=== PATIENT | male | born 1950 | race Caucasian/White ===

== ENCOUNTER 2016-08-07 02:28 | Inpatient (IN) | payer OTHER ==
--- NOTE | ~2016-08-07 | HP ---
History And Physical [id number] [place]. [address] NAME: GERTRUDIS LOAIZA : 54 STATUS : ADM IN [facility]#: [id number] AGE: 66 ADM/REG DATE : 08/07/16 MR#: [id number] REPORT SERV DATE: 08/07/16 DICTATED BY: CORI VARELA DATE: 08/07/16 REPORT STATUS : Draft TRANSCRIBED BY: MODLaquita DATE: 08/07/16 DATE OF ADMISSION: 08/07/2016 POINT OF ENTRY: [facility] Emergency Department. PRIMARY ASSET MANAGER: Marcelino Zapata M.D. CHIEF COMPLAINT: Shortness of breath, chest tightness. HISTORY OF PRESENT ILLNESS: Mr. Loaiza is a 66-year-old gentleman with a history of coronary artery disease with prior ST-elevation myocardial infarction and PCI to the LAD and RCA as well as COPD, on 2 L nasal cannula, and chronic systolic congestive heart failure with last known ejection fraction of 30%, who presents to the emergency department today with a two to three-day history of worsening shortness of breath, cough, sputum production, wheezing, subjective fevers, as well as a sensation of fluid overload. The patient states that he is prescribed Lasix 40 mg b.i.d., but only takes it 40 mg daily as the evening dose causes him to pee throughout the night. 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 The patient states that he has had a few bouts of upper respiratory infections and/or COPD exacerbations for the last few months and has been prescribed various rounds of antibiotics for this. He primarily complains of a two to three-day history of cough with sputum production with associated shortness of breath, dyspnea on exertion, and some orthopnea. He states that he probably has abdominal bloating, but does also endorse some lower extremity edema. Also, endorses some wheezing. Also, endorses some low-grade fevers about 100.0 degrees Fahrenheit. The patient denies any mica left-sided chest pain, but describes a sensation of chest tightness which he attributes to volume overload. Initial evaluation in the emergency department notable for troponin value was mildly elevated at 0.18, BNP is greater than 5000. Chest x-ray shows volume overload. EKG is a paced rhythm and is somewhat concerning for some very mild ST elevations in the lateral leads. I have no prior for comparison at this time, his ChartMaxx is down. Repeat EKG is pending at time of dictation. The patient was given 80 mg of IV Lasix and Solu-Medrol breathing treatments and admitted to the Hospitalist Service. REVIEW OF SYSTEMS: Comprehensive review of systems otherwise negative unless listed in history of present illness. The patient states he does not weigh himself on a daily basis. He is able to tell me his fluid intake, but does state that he restricts it. He states that he avoids adding salt to foods, but readily admits that he may not avoid foods that already are intrinsically high in sodium. PREVIOUS MEDICAL HISTORY: 1. Chronic systolic congestive heart failure with ejection fraction of 30% in 2013. 2. Coronary artery disease with prior PCI to the LAD and RCA. History And Physical [address] [address] NAME: GERTRUDIS LOAIZA : [birth year] STATUS : ADM IN [facility]#: [id number] AGE: 66 ADM/REG DATE : 08/07/16 MR#: [id number] REPORT SERV DATE: 08/07/16 DICTATED BY: CORI VARELA DATE: 08/07/16 REPORT STATUS : Draft TRANSCRIBED BY: CHACHA DATE: 08/07/16 3. COPD, on 2 L by nasal cannula. 4. Status post pacemaker ICD insertion. 5. Chronic kidney disease, stage 2. 6. Peptic ulcer disease. 7. Obstructive sleep apnea, on CPAP therapy. 8. Active tobacco abuse. SURGICAL HISTORY: 1. AICD pacemaker. 2. PCI. 3. Cholecystectomy. 4. Bilateral inguinal hernia repair. ALLERGIES: SHELLFISH, SHRIMP, BUT HAS TOLERATED PRIOR ARTERIOGRAMS IN THE PAST. HOME MEDICATIONS: Pending at time of dictation. SOCIAL HISTORY: Smokes about a half pack per day. Denies any alcohol. Denies any illicits. FAMILY MEDICAL HISTORY: Mother with cancer, type unknown. Father with coronary artery disease in the early 60s of myocardial infarction. Siblings, only child. LABS AND IMAGIN. White count is 14.1, hemoglobin 9.7, hematocrit is 35.1, platelets 204. INR 1.2. 2. Sodium is 140, potassium 4.3, chloride 107, carbon dioxide 29, BUN 14, creatinine 1.07, glucose is 100, calcium is 9.1, magnesium is 2.3. 3. Troponin is 0.18, BNP is greater than 5000. 4. EKG #1 per my review, AV paced rhythm with occasional PVCs with some approximately [address] elevations in the lateral leads. 5. EKG #2 per my review again shows an AV paced rhythm at this time with less than [address] elevations in leads V4 through V6. Again, no prior for comparison at this time, his ChartMaxx is down. 6. Chest x-ray per my review shows cardiomegaly with AICD in place as well as intravascular volume overload and pulmonary venous congestion, but no mica pulmonary edema. PHYSICAL EXAMINATION: VITAL SIGNS: Temperature is 100.3 degrees Fahrenheit, pulse is 99, respirations 20, saturating 100% on 3 L by nasal cannula, blood pressure is 146/74. On recheck, blood pressure is now 142/71, saturating 97% on 3 L by nasal cannula, pulse of 92. GENERAL: The patient is awake, alert, in no acute distress. Resting comfortably in bed. He is a well-developed, well-nourished, male. HEENT: Atraumatic and normocephalic. Moist mucous membranes. Pupils are equal, round, reactive to light and accommodation. Extraocular eye movements are intact. No scleral icterus. NECK: Positive jugular venous distention. No carotid bruits. CARDIAC: Regular rate and rhythm with a 2/6 systolic murmur heard best over left lower History And Physical [address] [address] NAME: GERTRUDIS LOAIZA : [birth year] STATUS : ADM IN [facility]#: [id number] AGE: 66 ADM/REG DATE : 08/07/16 MR#: [id number] REPORT SERV DATE: 08/07/16 DICTATED BY: CORI VARELA DATE: 08/07/16 REPORT STATUS : Draft TRANSCRIBED BY: MODL DATE: 08/07/16 sternal border. LUNGS: On oxygen, but in no respiratory distress. Decreased breath sounds at the bases and prolonged respiratory phase with some mild inspiratory crackles and rales, but I do not appreciate any wheezes at this time. ABDOMEN: Obese, soft, nontender, nondistended. Good bowel sounds. No rebound, guarding, rigidity. EXTREMITIES: Warm and perfused with trace pedal edema. SKIN: Warm and dry. PSYCH: Affect appropriate. NEURO: Alert and oriented x3. Cranial nerves 2 through 12 grossly intact. Speech is normal. Gait not assessed. ASSESSMENT AND PLAN: Mr. Loaiza is a 66-year-old gentleman with a history of chronic systolic congestive heart failure with chronic obstructive pulmonary disease, coronary artery disease, and active tobacco abuse, who presents with a few day history of shortness of breath, cough, sputum production, and wheezing as well as fevers. PROBLEM LIST: 1. Acute on chronic systolic congestive heart failure. 2. Acute chronic obstructive pulmonary disease exacerbation. 3. Troponin elevation. 4. Leukocytosis. 5. Active tobacco abuse. 6. Chronic hypoxic respiratory failure. PLAN: 1. Acute on chronic systolic congestive heart failure likely due to the patient not taking the prescribed amount of Lasix as well as possible fluid and sodium noncompliance. We will place him on Lasix 40 mg IV q.8 hours for first 24 hours, place him on fluid and sodium restriction, and daily weights. We will place him on low-dose Coreg as well as lisinopril for heart failure optimization. We will repeat an echocardiogram, his most recent I can see is 2012 at 30%. 2. Acute COPD exacerbation. Provide some IV steroids, nebulizations, as well as antibiotics. 3. Leukocytosis, unclear etiology at this time. His chest x-ray is clear. Checking urinalysis as well as blood culture, sputum culture, procalcitonin, and lactic acid level. He will be on Levaquin for COPD exacerbation. 4. Troponin elevation. The patient reports chest tightness, but not mica pain. His EKG while abnormal does not appear to be actively ischemic. Unfortunately, I do not have any priors for comparison at this time. We will trend out cardiac enzymes. Continue the patient on aspirin. Cardiology consultation for assistance. Again, likely due to demand ischemia from his volume overload and COPD exacerbation. 5. Chronic hypoxic respiratory failure. The patient is currently close to his baseline oxygen requirements. We will wean as tolerated. 6. Active tobacco abuse. Need for tobacco cessation. 7. DVT prophylaxis. Lovenox subcu. History And Physical [address] [address] NAME: GERTRUDIS LOAIZA : 54 STATUS : ADM IN PAT#: [id number] AGE: 66 ADM/REG DATE : 08/07/16 MR#: [id number] REPORT SERV DATE: 08/07/16 DICTATED BY: CORI VARELA DATE: 08/07/16 REPORT STATUS : Draft TRANSCRIBED BY: CHACHA DATE: 08/07/16 CODE STATUS: The patient wishes to be full code. JCB/CHACHA Cori Varela MD / [id number] CC: Dhiraj Polo MD Brian Mitchell, M.D.
--- NOTE | ~2016-08-07 | DS ---
Discharge Summary [facility] [address] [place]. [address] NAME: GERTRUDIS MENSAH : 54 STATUS : DIS IN PAT#: [id number] AGE: 66 ADM/REG DATE : 08/07/16 MR#: [id number] REPORT SERV DATE: 08/09/16 DICTATED BY: SURESH GRAY DATE: 08/08/16 REPORT STATUS : Draft TRANSCRIBED BY: MODL DATE: 08/08/16 ADMISSION DATE: 08/07/2016 DISCHARGE DATE: 08/08/2016 DISCHARGE DIAGNOSES: Include: 1. Chronic systolic heart failure in the setting of some volume overload and noncompliance with medication therapy. 2. Shortness of breath with chronic obstructive pulmonary disease exacerbation. 3. Tobacco use. 4. Positive troponin and demand ischemia. 5. Leukocytosis. 6. Chronic hypoxic respiratory failure. 7. History of coronary artery disease, coronary artery bypass grafting. 8. Ischemic cardiomyopathy with a previous ejection fraction of 25 to 30%. 9. Small dime-sized abscess on the left posterior thigh. DISCHARGE MEDICATIONS: Are as follows: Aspirin 81 mg daily; carvedilol 6.25 mg p.o. twice a day, prescription written; Zestril 2.5 Mg twice a day; Senokot two tabs twice a day; Carafate 1 g p.o. four times a day; Aldactone 25 mg daily; Demadex 20 mg daily; Decadron 4 mg daily; Phenergan 25 mg every four hours p.r.n.; Spiriva one capsule one daily; ProAir inhaler one puff inhaled q.4 hours p.r.n. for shortness of breath; and doxycycline 100 mg twice a day for seven days. HISTORY OF PRESENT ILLNESS: This is a 66-year-old white male, presented with worsening shortness of breath and chest tightness. Please see the initial H and P of Dr. Diomedes Roberts. The patient admitted to the Hospitalist Service for further evaluation and treatment. He was initially given more aggressive IV diuresis with Lasix. Lab work was ordered and followed. He was given nebulizer, steroids, and antibiotics. CONSULTANTS DURING THIS ADMISSION: Include Cardiology, Dr. Jeovanny Dougherty. CONTINUATION OF HOSPITAL COURSE: Following day on 08/07/2016, I saw the patient, where he was feeling considerably better, was only having very mild shortness of breath, chest pain was better but was still somewhat there with inspiration. He was seen by double head machine operator, Dr. Jeovanny Dougherty, and I believe in the conservation more light was shed on his overall health history and current social situation. His echocardiogram that initially been ordered was canceled by Cardiology, and his diuretics were changed from Lasix to Demadex. His Coreg had been increased and this was continued and Cardiology felt like he would be safe for discharge home with home health and have an outpatient followup with double head machine operator, Dr. Zapata, in four weeks and a lengthy discussion with the patient about need to be compliant with his current medication regimen. Hopefully, the patient will need to take his medications as prescribed. The patient was complaining of a small reddened abscess on the left posterior thigh area, and it was approximately a dime-sized. I expressed a small amount of pus from this, and I have placed the patient on doxycycline for treatment. He states that it has gotten better over the past several weeks and he will follow up with his primary care, Dr. Santiago, in 7-10 days as well. He made a rather rapid improvement in his Discharge Summary [address] [address] NAME: GERTRUDIS MENSAH : 54 STATUS : DIS IN PAT#: [id number] AGE: 66 ADM/REG DATE : 08/07/16 MR#: [id number] REPORT SERV DATE: 08/09/16 DICTATED BY: SURESH GRAY DATE: 08/08/16 REPORT STATUS : Draft TRANSCRIBED BY: CHACHA DATE: 08/08/16 overall clinical picture simply by being on the medication regimen and being adherent while here in the hospital. I had a lengthy discussion with the patient about need to quit smoking as well, and hopefully, he will take that to heart. The patient will be discharged home on 08/08/2016 with the above medication regimen, prescriptions, followup planning. Questions were answered at bedside, and he is in agreement with this. Please note greater than 30 minutes was spent on this discharge for medication teaching, followup planning, and further disposition. DICTATED BY: Suresh Gray NP CSC/CHACHA Suresh Gray NP / [id number] CC: MD Raoul Villagomez MD
--- NOTE | ~2016-08-07 | CN ---
Consultation Report [facility] [address] [place]. [address] NAME: GERTRUDIS LOAIZA : 54 STATUS : ADM IN PAT#: [id number] AGE: 66 ADM/REG DATE : 08/07/16 MR#: [id number] REPORT SERV DATE: 08/07/16 DICTATED BY: JEOVANNY BARNES DATE: 08/07/16 REPORT STATUS : Draft TRANSCRIBED BY: MODL DATE: 08/07/16 CARDIOLOGY CONSULT DATE OF CONSULTATION: 08/07/2016 REASON FOR CONSULTATION: Ischemic cardiomyopathy and demand ischemia. PRIMARY CUTTER OPERATOR: Marcelino Zapata M.D. HISTORY OF ILLNESS: Mr. Loaiza is a 66-year-old male with a complex past medical history , who presented to the [facility] Emergency Department with increasing shortness of breath and chest pain. He has a known chronic stable angina, which has been increasing recently in the setting of volume overload due to medication, diuretic therapy, nonadherence. He has been given IV Lasix in the ER as well as pulmonary treatments for COPD and he now feels much better. He is resting comfortably, lying flat in bed. He denies having any palpitations. He has had no ICD shocks or syncope. He notes that his atypical chest pain symptoms have significantly improved. He had no lower extremity edema. Mr. Loaiza's care is complicated by known CAD, status post CABG and PCI, ischemic cardiomyopathy with an LVEF of 25% to 30%, ICD in situ, chronic systolic heart failure (class 3/4-stage D), and severe steroid-dependent COPD. Of note, Mr. Loaiza was recently on hospice care with an unclear status at this time. REVIEW OF SYSTEMS: Pertinent positives and negatives are as outlined above, all others negative. PAST MEDICAL HISTORY: 1. CAD, status post CABG and PCI. 2. Ischemic cardiomyopathy, EF 25% to 30%. 3. Chronic systolic heart failure, class 3/4-stage D. 4. ICD in situ. 5. Nonsustained ventricular tachycardia. 6. History of tobacco use. 7. Severe steroid-dependent COPD. 8. Hypertension. 9. Hyperlipidemia, statin intolerant. MEDICATIONS: His current home medications are: 1. Carvedilol 6.25 mg twice daily. 2. Lisinopril 2.5 mg twice daily. 3. Lasix 40 mg twice daily, currently not taking. 4. Decadron 4 mg daily. 5. Bactrim DS daily. 6. Carafate 1 g daily. Consultation Report [address] [place]. [address] NAME: GERTRUDIS LOAIZA : 54 STATUS : ADM IN PAT#: [id number] AGE: 66 ADM/REG DATE : 08/07/16 MR#: [id number] REPORT SERV DATE: 08/07/16 DICTATED BY: JEOVANNY BARNES DATE: 08/07/16 REPORT STATUS : Draft TRANSCRIBED BY: CHACHA DATE: 08/07/16 7. Senokot tablets as directed. 8. Phenergan p.r.n. 9. Symax-SL 0.125 mg every 4 hours p.r.n. ALLERGIES: INCLUDE SHELLFISH. SOCIAL HISTORY: Mr. Loaiza has intermittent tobacco use. He does not consume alcohol or use illegal drugs. He was recently on hospice for severe steroid-dependent COPD and class 3/4-stage D chronic heart failure. FAMILY HISTORY: Significant for CAD and COPD. PHYSICAL EXAMINATION: VITAL SIGNS: Temperature is 98.4, pulse is 88, respirations 16, and blood pressure 118/66. GENERAL: Well-developed chronically ill-appearing male who is resting comfortably, lying flat in bed in no distress. HEENT: Sclerae anicteric, mucous membranes moist and without lesions. NECK: There is JVD 2-4 cm above the clavicle sitting at 60 degrees. No hepatojugular reflux, carotid upstrokes 2+ and symmetric, there are no carotid or subclavian bruit. LUNGS: Severely decreased breath sounds throughout with no wheezes or crackles. CARDIOVASCULAR: Regular with soft S1 and normal S2. No audible S3. There is a soft 1/6 holosystolic murmur heard in the axilla without radiation. No parasternal lift. PMI is not palpable. ABDOMEN: Obese, soft, and nontender. Bowel sounds are positive and normoactive. PULSES: Radial and dorsalis pedis pulses are 1+ and symmetric. EXTREMITIES: Warm and without edema. SKIN: No clubbing or cyanosis, no rashes or lesions. ACCESSORY DATA: ECG on arrival shows sinus rhythm and an atrial sensed ventricular paced rhythm. Chest x-ray shows cardiomegaly and no acute disease. Labs with a creatinine of 1.0 and troponin 0.18 and subsequent 0.13. BNP 5000. CBC unremarkable. IMPRESSION: 1. Shortness of breath. 2. Chest pain/chronic angina with demand ischemia. 3. Volume overload secondary to medication nonadherence. 4. Coronary artery disease, status post CABG and PCI. 5. Ischemic cardiomyopathy, EF 25% to 30%. 6. Nonsustained ventricular tachycardia. 7. ICD in situ. Consultation Report [address] [address] NAME: GERTRUDIS LOAIZA : 54 STATUS : ADM IN PAT#: [id number] AGE: 66 ADM/REG DATE : 08/07/16 MR#: [id number] REPORT SERV DATE: 08/07/16 DICTATED BY: JEOVANNY BARNES. DATE: 08/07/16 REPORT STATUS : Draft TRANSCRIBED BY: CHACHA DATE: 08/07/16 8. Chronic systolic heart failure, class 3/4-stage D. 9. Severe steroid dependent chronic obstructive pulmonary disease. 10.Tobacco use. PLAN: Mr. Loaiza is currently on good medical therapy. I agree with recently increased carvedilol. He has had some NSVT on telemetry monitoring, but no syncope or ICD shocks. Recommend changing Lasix to oral Demodex for better bioavailability, longer half-life, and more potent diuretic effect. This may increase compliance taking this once daily rather Lasix twice daily. It could be taken twice daily on a p.r.n. basis. Echocardiogram will be canceled. We will not exchange administrator. Need to confirm hospice status versus palliative care need. We will recommend following up with his primary robotics specialist in one month and his primary care provider one week. His care was discussed with the hospitalist, Dr. Alberts, who agreed with the plan. Please call with questions. AEA/MODL Jeovanny Barnes M.D. / [id number] CC: MD Michele Villagomez M.D.
[2016-08-07 02:27] LABS: BASOPHILS 0.4 %; BASOPHILS ABSOLUTE 0.05 10/3/uL (0.0-0.16); EOSINOPHILS 1.5 %; EOSINOPHILS ABSOLUTE 0.21 10/3/uL (0.0-0.53); ER CBC TAT 0 Hrs 05 Mins; HEMATOCRIT 35.1 % (40.0-51.0); HEMOGLOBIN 11.7 g/dL (13.6-17.8); IMMATURE GRANULOCYTES 0.2 %; IMMATURE GRANULOCYTES ABSOLUTE 0.03 10/3/uL (0.0-0.11); LYMPHOCYTES 18.4 %; LYMPHOCYTES ABSOLUTE 2.59 10/3/uL (0.67-4.30); MANUAL DIFF NO %; MEAN CORPUS HGB CONC 33.3 g/dL (32.0-36.0); MEAN CORPUSCULAR HEMOGLOB 33.5 pg (26.0-34.0); MEAN CORPUSCULAR VOLUME 100.6 fL (80-100); MEAN PLATELET VOLUME 10.9 fL (9.2-13.0); MONOCYTES 5.8 %; MONOCYTES ABSOLUTE 0.82 10/3/uL (0.21-1.20); NEUTROPHILS 73.7 %; PLATELET COUNT 204 10/3/uL (150-400); RBC DISTRIBUTION WIDTH 14.3 % (12.0-16.0); RED CELL COUNT 3.49 10/6/uL (4.7-6.1); WHITE BLOOD CELLS 14.1 10/3/uL (4.5-10.5)
[~2016-08-07 02:28] MED LIST: ALBUTEROL5 INH; ASAB PO; ATV1 PO; BRILINTA90 MG PO; CARDCD240 PO; COREG12 PO; COREG6 PO; EFFIENT10 PO; KDUR10 PO; L40 PO; LIPITOR20 PO; LIPITOR40 PO; LOP50 PO; MICRO-K10 MEQ PO; NORCO1 TA2 PO; NORCO1 TAB PO; PRIN20 PO; PROVHFA INH; SENTAB PO; SPIRO25 PO; TRAZODONE150 MG PO; XANAX1 MG PO; ZESTRIL20 MG PO
[2016-08-07 02:33] LABS: INTERNATIONAL NORMAL RATI 1.2 UNITS (-); PARTIAL THROMBO TIME 32.9 SEC (22.5-37.2); PROTIME (NOT ORD) 15.5 SEC (12.0-14.5)
[2016-08-07 02:46] LABS: BUN (BLOOD UREA NITROGEN) 14 MG/DL (6-23); CALCIUM, SERUM 9.1 MG/DL (8.5-10.4); CHEST PAIN PROFILE TAT 0 Hrs 24 Mins; CHLORIDE, SERUM 107 MMOL/L (96-112); CO2 (CARBON DIOXIDE) 29 MMOL/L (24-34); CREATININE 1.07 MG/DL (0.70-1.30); GFR AFRICAN AMERICAN 85 ML/MIN (>=60); GFR NON AFRICAN AMERICAN 73 ML/MIN (>=60); GLUCOSE, SERUM 100 MG/DL (60-99); POTASSIUM, SERUM 4.3 MMOL/L (3.5-5.3); SODIUM, SERUM 140 MMOL/L (135-148); TROPONIN I 0.18 NG/ML (<0.05)
[2016-08-07 03:10] LABS: PROCALCITONIN <0.05 ng/mL (<0.5)
[2016-08-07] MEDS ORDERED: PR25 PO (04:08)
[2016-08-07] MEDS ORDERED: COREG6 PO (04:09)
[2016-08-07] MEDS ORDERED: SYMAX-SL0.125 MG SL (04:10)
[2016-08-07] MEDS ORDERED: ZESTRIL2.5 MG PO (04:12)
[2016-08-07] MEDS ORDERED: SUCR PO (04:13)
[2016-08-07] MEDS ORDERED: L40 PO (04:14)
[2016-08-07] MEDS ORDERED: SENTAB PO (04:15)
[2016-08-07] MEDS ORDERED: BACTRIM DS1 TAB PO (04:17)
[2016-08-07] MEDS ORDERED: DEX4 PO (04:18)
[2016-08-07 10:35] LABS: CK-MB 2.2 NG/ML; CPK 45 U/L (0-200); TROPONIN I 0.13 NG/ML (<0.05)
[2016-08-07 16:05] LABS: CPK 44 U/L (0-200)
[2016-08-07 16:22] LABS: CK-MB 2.3 NG/ML; TROPONIN I 0.12 NG/ML (<0.05)
[2016-08-08 05:43] LABS: BASOPHILS 0 %; EOSINOPHILS 0 %; HEMATOCRIT 39.6 % (40.0-51.0); HEMOGLOBIN 13.3 g/dL (13.6-17.8); IMMATURE GRANULOCYTES 0.3 %; IMMATURE GRANULOCYTES ABSOLUTE 0.03 10/3/uL (0.0-0.11); LYMPHOCYTES 10.2 %; LYMPHOCYTES ABSOLUTE 1.16 10/3/uL (0.67-4.30); MANUAL DIFF NO %; MEAN CORPUS HGB CONC 33.6 g/dL (32.0-36.0); MEAN CORPUSCULAR VOLUME 98.3 fL (80-100); MEAN PLATELET VOLUME 10.8 fL (9.2-13.0); MONOCYTES 1.6 %; MONOCYTES ABSOLUTE 0.18 10/3/uL (0.21-1.20); NEUTROPHILS 87.9 %; NEUTROPHILS ABSOLUTE 10.01 10/3/uL (2.02-8.40); PLATELET COUNT 236 10/3/uL (150-400); RBC DISTRIBUTION WIDTH 13.9 % (12.0-16.0); RED CELL COUNT 4.03 10/6/uL (4.7-6.1); WHITE BLOOD CELLS 11.4 10/3/uL (4.5-10.5)
[2016-08-08 05:56] LABS: CALCIUM, SERUM 9.4 MG/DL (8.5-10.4); CHLORIDE, SERUM 99 MMOL/L (96-112); CO2 (CARBON DIOXIDE) 26 MMOL/L (24-34); CREATININE 1.45 MG/DL (0.70-1.30); GFR AFRICAN AMERICAN 59 ML/MIN (>=60); GFR NON AFRICAN AMERICAN 51 ML/MIN (>=60); POTASSIUM, SERUM 4.8 MMOL/L (3.5-5.3)
[2016-08-08 05:57] LABS: BUN (BLOOD UREA NITROGEN) 27 MG/DL (6-23); GLUCOSE, SERUM 139 MG/DL (60-99); SODIUM, SERUM 133 MMOL/L (135-148)
[2016-08-08] MEDS ORDERED: ASAB PO (13:36)
[2016-08-08] MEDS ORDERED: DEMA20 PO (13:37)
[2016-08-08] MEDS ORDERED: SPIRO25 PO (13:38)
[2016-08-08] MEDS ORDERED: PROAIR HFA INH (13:39)
[2016-08-08] MEDS ORDERED: SPIRIVA RESPIMAT INH (13:39)
== END 2016-08-08 16:03 | disposition home health service (06) | DRG 292 ==
LOC: ER 02:28 → ER/OF 04:54 → 2SO 06:45
PROVIDERS: Hospitalist; Nurse Practitioner Acute Care
DX: I50.23 Acute on chronic systolic (congestive) heart failure (principal); J44.1 Chronic obstructive pulmonary disease with (acute) exacerbation; J96.11 Chronic respiratory failure with hypoxia; I24.8 Other forms of acute ischemic heart disease; L02.416 Cutaneous abscess of left lower limb; I47.1 Supraventricular tachycardia; I25.119 Atherosclerotic heart disease of native coronary artery with unspecified angina pectoris; I25.5 Ischemic cardiomyopathy; F17.210 Nicotine dependence, cigarettes, uncomplicated; N18.2 Chronic kidney disease, stage 2 (mild); K27.9 Peptic ulcer, site unspecified, unspecified as acute or chronic, without hemorrhage or perforation; G47.33 Obstructive sleep apnea (adult) (pediatric); Z95.0 Presence of cardiac pacemaker; Z95.5 Presence of coronary angioplasty implant and graft; Z82.49 Family history of ischemic heart disease and other diseases of the circulatory system; Z98.890 Other specified postprocedural states; Z91.013 Allergy to seafood; Z95.810 Presence of automatic (implantable) cardiac defibrillator; Z91.14 Patient's other noncompliance with medication regimen; Z79.52 Long term (current) use of systemic steroids
CPT/HCPCS: 71010; 80048; 82550; 82553; 83605; 83735; 83880; 84145; 84443; 84484; 85025; 85610; 85730; 87040; 87070; 87205; 93005; 94640; 96374; 96375; 99285; A9270-GY; J1956; J2405; J2930